=== PATIENT | male | born 1975 | race Caucasian/White ===

== ENCOUNTER → 2020-03-06 | Outpatient (CLI) | payer OTHER ==
[2020-03-06 12:47] LABS: BASOPHILS # (AUTO) 0.07 x10^3/uL (0-0.1); BASOPHILS % (AUTO) 1 % (0-1); EOSINOPHILS # (AUTO) 0.29 x10^3/uL (0-0.4); EOSINOPHILS % (AUTO) 4 % (1-7); INTERNATIONAL NORMALIZED RATIO 0.94 (0.93-1.1); LYMPHOCYTES # (AUTO) 2.17 x10^3/uL (1-3.4); LYMPHOCYTES % (AUTO) 28 % (22-44); MD NO; MEAN CORPUSCULAR HGB CONC 34.3 g/dL (33.2-36.2); MEAN CORPUSCULAR VOLUME 96.1 fL (81-97); MEAN PLATELET VOLUME 8.3 fL (7.4-10.4); MONOCYTES # (AUTO) 0.66 x10^3/uL (0.2-0.8); MONOCYTES % (AUTO) 8 % (2-9); NEUTROPHILS % (AUTO) 60 % (42-75); PLATELET COUNT 261 x10^3/uL (130-400); PROTHROMBIN TIME 9.7 Seconds (9.6-11.5); RED BLOOD COUNT 4.62 x10^6/uL (4.38-5.82); RED CELL DISTRIBUTION WIDTH 13.3 % (9.4-14.8)
[2020-03-06 12:51] LABS: CHLORIDE 109 mmol/L (98-107)
[2020-03-06 13:03] LABS: ANION GAP 7 mmol/L (5-15); CREATININE 0.77 mg/dL (0.7-1.3)
== END | disposition home or self-care (01) ==
LOC: STAR 11:10
PROVIDERS: ATTEND Neurological Surgery
DX: Z01.812 Encounter for preprocedural laboratory examination (principal); M48.061 Spinal stenosis, lumbar region without neurogenic claudication; Z20.828 Contact with and (suspected) exposure to other viral communicable diseases
CPT/HCPCS: 36415; 71046; 80048; 85025; 85610; 85730; 87635; 93005

== ENCOUNTER 2020-03-11 07:15 | Day surgery (SDC) | payer OTHER ==
[~2020-03-11] VITALS: Ht 172.7 cm; Wt 101.6 kg
[~2020-03-11 07:15] MED LIST: BACITRACIN 50,000 UNIT ONE; BACITRACIN OINT 500U/GM, 15 GM ONE; BUPIVACAINE/EPI 0.5% 1:200K ONE; THROMBIN 20,000 UNIT VIAL TP ONE
[2020-03-11] MEDS ORDERED: LACTATED RINGERS 1,000 ML IV SCH (07:56)
[2020-03-11] MEDS ORDERED: NONE PER PT (07:57)
[2020-03-11 07:58] VITALS: BP 159/106
[2020-03-11] MEDS ORDERED: CHLORHEXIDINE 15 ML UDC MM ONE (08:00)
[2020-03-11] MEDS ORDERED: CHLORHEXIDINE 15 ML UDC ONE (08:07)
[2020-03-11 09:02] VITALS: BP 146/88
[2020-03-11] MEDS ORDERED: MIDAZOLAM 1 MG/ML, 2ML ONE (09:12)
[2020-03-11] MEDS ORDERED: FENTANYL PF 100 MCG/2ML ONE ×2 (09:12→12:16)
[2020-03-11] MEDS ORDERED: PROPOFOL 10 MG/ML, 20ML ONE (09:13)
[2020-03-11] MEDS ORDERED: SUCCINYLCHOLINE 20 MG/ML, 10ML ONE (09:13)
[2020-03-11] MEDS ORDERED: ROCURONIUM 10MG/ML,5ML ONE (09:13)
[2020-03-11] MEDS ORDERED: NEOSTIGMINE 1 MG/ML, 10ML ONE (09:13)
[2020-03-11] MEDS ORDERED: CEFAZOLIN 1,000 MG ONE (09:13)
[2020-03-11] MEDS ORDERED: GLYCOPYRROLATE 0.2MG/1ML, 5ML ONE (09:13)
[2020-03-11] MEDS ORDERED: DEXAMETHASONE 4 MG/ML, 1ML ONE (09:13)
[2020-03-11] MEDS ORDERED: ONDANSETRON 2MG/ML, 2ML ONE (09:13)
[2020-03-11] MEDS ORDERED: PROPOFOL 50 ML ONE ×2 (10:32→11:18)
[2020-03-11] MEDS ORDERED: PHENYLEPHRINE 10 MG/ML ONE (10:44)
[2020-03-11] MEDS ORDERED: PROMETHAZINE 25 MG/ML, 1ML IVPush PRN (11:30)
[2020-03-11] MEDS ORDERED: OXYcodone 5 MG/5 ML ORAL.SOL UDC PO PRN (11:30)
[2020-03-11] MEDS ORDERED: HYDROcodone/APAP 7.5-325MG/15ML UDC PO PRN (11:30)
[2020-03-11] MEDS ORDERED: METHOCARBAMOL 1,000 MG in DEXTROSE 5% 100 ML IV PRN (11:30)
[2020-03-11] MEDS ORDERED: HYDROmorphone 1 MG/ML, 1ML INJ IVPush PRN (11:30)
[2020-03-11] MEDS ORDERED: MEPERIDINE/PF 25MG/0.5ML IVPush PRN (11:30)
[2020-03-11] MEDS ORDERED: VANCOMYCIN 1,000 MG ONE (11:33)
[2020-03-11] MEDS: FENTANYL PF 100 MCG/2ML IV PRN ×3 (12:17→12:46)
[2020-03-11] MEDS ORDERED: OXYcodone 5 MG/5 ML ORAL.SOL UDC ONE (12:31)
== END 2020-03-11 14:05 | disposition home or self-care (01) ==
LOC: OUT 07:15
PROVIDERS: ATTEND Neurological Surgery
DX: M51.16 Intervertebral disc disorders with radiculopathy, lumbar region (principal); Z79.899 Other long term (current) drug therapy; Z72.89 Other problems related to lifestyle; Z87.891 Personal history of nicotine dependence; F12.90 Cannabis use, unspecified, uncomplicated
CPT/HCPCS: 63030; 72100; 95938; 95941; J0330; J0690; J1100; J2250; J2370; J2405; J2704; J2710; J2800; J3010; J3370; J7120